=== PATIENT | female | born 1985 | race Asian ===

== ENCOUNTER 2020-06-29 15:58 | Emergency (ER) | payer OTHER ==
[~2020-06-29] VITALS: Ht 162.6 cm; Wt 51.7 kg
[2020-06-29 16:32] VITALS: Ht 162.6 cm; Wt 51.7 kg
[2020-06-29 19:02] VITALS: BP 104/63
== END 2020-06-29 19:02 | disposition home or self-care (01) ==
LOC: ED 15:58
DX: R55 Syncope and collapse (principal); M54.5 Low back pain; W19.XXXA Unspecified fall, initial encounter; Y93.89 Activity, other specified; Y92.89 Other specified places as the place of occurrence of the external cause; Y99.8 Other external cause status
CPT/HCPCS: J1885; J7030